=== PATIENT | female | born 1955 | race Two or more races ===

== ENCOUNTER 2017-03-03 09:56 | Day surgery (SDC) | payer OTHER ==
[~2017-03-03] VITALS: Ht 165.1 cm; Wt 93.5 kg
[2017-03-03 10:05] VITALS: Ht 165.1 cm; Wt 93.5 kg
[2017-03-03] MEDS ORDERED: VITAMINS PO (10:15)
[2017-03-03 10:21] VITALS: BP 139/81; PULSE 50; RESP 24
[2017-03-03] MEDS ORDERED: PROPOFOL 40 ML ONE (10:31)
[2017-03-03] MEDS ORDERED: LIDOCAINE 2% (SDV) 5 ML INJ ONE (10:31)
--- NOTE | 2017-03-03 11:43 | OPPN ---
Date/Time of Note Date/Time of Note DATE: 03/03/17 TIME: 11:40 Proc Note GI Procedure date: Mar 03, 2017 Pre-procedure Diagnosis Patient presenting with a history of stool positive for occult blood Post-procedure Diagnosis Mildly diffuse gastritis Operation Performed Esophagogastroduodenoscopy Surgeon: INGRID CLARK MD Anesthesiologist: YUMIKO DIETRICH MD Estimated blood loss: none Specimens Biopsy was done from the stomach to rule out H. pylori infection from the antrum lesser curvature in the fundus Grafts/Implants None Tubes/Drains None Complications: None Procedure Description Procedure esophagogastroduodenoscopy preop diagnosis patient presenting with history of occult GI bleeding to rule out peptic ulcer disease gastritis After informed written consent is obtained patient was asked to lay in the left lateral side intravenous anesthesia was given by anesthesia was Dr. Dietrich When the patient becomes somnolent Olympus video upper endoscope was introduced into the oropharynx and into the esophagus Anterior esophagus appeared normal with no mucosal abnormality Scope of the stent was advanced into the stomach stomach showed evidence of diffuse mild gastritis Biopsy was done from the lesser curvature antrum and the fundus to rule out H. pylori infection Duodenum appeared normal At this time scope was withdrawn and the procedure was terminated plan recommend wait for the pathology report INGRID CLARK MD Mar 03, 2017 11:43
--- NOTE | 2017-03-03 11:46 | OPPN ---
Date/Time of Note Date/Time of Note DATE: 03/03/17 TIME: 11:43 Proc Note GI Procedure date: Mar 03, 2017 Pre-procedure Diagnosis Patient presenting with a history of occult GI bleeding rule out colorectal neoplasm Post-procedure Diagnosis Colonoscopy showed evidence of a 2 polyps one at 10 cm another one at 30 cm from the anus Operation Performed Colonoscopy Surgeon: INGRID CLARK MD Anesthesiologist: YUMIKO DIETRICH MD Estimated blood loss: none Specimens Biopsy was done from the polyp at 10 cm and also polyp at 30 cm from the anus Grafts/Implants None Tubes/Drains After informed written consent is obtained patient was ostial in the left lateral side intravenous anesthesia was given by anesthesiology Dr. Dietrich and the patient with [employer] Video Colonoscope Was Introduced into the Rectum Scope Was Advanced All the Way to the Cecum There Is a Polyp Measuring about 5- 6 Mm Noted at 10 Cm from the Anus There Is a Sessile Polyp Biopsy Was Done Polypectomy Could Not Be Performed at 30 Cm from the Anus There Is Evidence of Another Polyp Measuring about 8 Mm Noted Polypectomy Was Performed but the Specimen Was Lost in the Stool. Scope with This and Was Advanced All the Way to the Cecum Rest of the Colon Appeared Normal Redundancy of the Colon Was Noted Endoscopically Stent Was Withdrawn No Additional Abnormalities Detected and the Procedure Was Terminated Plan Recommend Patient with the Pathology Report and If Necessary Repeat Colonoscopy Complications: None INGRID CLARK MD Mar 03, 2017 11:46
[2017-03-03 12:20] VITALS: BP 145/78; PULSE 46; RESP 16
== END 2017-03-03 15:01 | disposition home or self-care (01) ==
LOC: GIL 09:56
PROVIDERS: ATTEND Internal Medicine Gastroenterology
DX: K92.1 Melena (principal); K63.5 Polyp of colon; K29.60 Other gastritis without bleeding
CPT/HCPCS: 43239; 45380; 88305; 88312; Z7610

== ENCOUNTER 2017-05-26 10:42 | Day surgery (SDC) | payer OTHER ==
[~2017-05-26] VITALS: Ht 160 cm; Wt 92.4 kg
[~2017-05-26 10:42] MED LIST: VITAMINS PO
[2017-05-26 11:40] VITALS: Ht 160 cm; Wt 92.4 kg
[2017-05-26] MEDS ORDERED: FIBER (11:45)
--- NOTE | 2017-05-26 12:42 | OPPN ---
Date/Time of Note Date/Time of Note DATE: 05/26/17 TIME: 12:40 Proc Note GI Procedure Date 05/26/17 Indication: screening/surveillance Pre-procedure Diagnosis rectal polyp with high gr dysplasia Post-procedure Diagnosis rectal polyp at 10 cm bx done and tattooing done Procedure Performed: Colonoscopy Surgeon see signature line Crossing Watchman none Anesthesia Type: moderate sedation Tourniquet Time none EBL none Transfusion required none Biopsy 1: rectal polyp at 10 cm mfrom anus Grafts/Implants none Tubes/Drains none Complication(s) none Procedure Description mod sedation sessile polyp 1cm noted at 10 cm from anus bx done tattooing done INGRID CLARK MD May 26, 2017 12:42
--- NOTE | 2017-05-26 12:42 | OPPN ---
Date/Time of Note Date/Time of Note DATE: 05/26/17 TIME: 12:40 Proc Note GI Procedure Date 05/26/17 Indication: screening/surveillance Pre-procedure Diagnosis rectal polyp with high gr dysplasia Post-procedure Diagnosis rectal polyp at 10 cm bx done and tattooing done Procedure Performed: Colonoscopy Surgeon see signature line Production Shift Supervisor none Anesthesia Type: moderate sedation Tourniquet Time none EBL none Transfusion required none Biopsy 1: rectal polyp at 10 cm mfrom anus Grafts/Implants none Tubes/Drains none Complication(s) none Procedure Description mod sedation sessile polyp 1cm noted at 10 cm from anus bx done tattooing done INGRID CLARK MD May 26, 2017 12:42
[2017-05-26] MEDS ORDERED: MIDAZOLAM 1 MG/ML 2 ML INJ ONE ×3 (12:59)
[2017-05-26] MEDS ORDERED: FENTAnyl 50 MCG/ML VIAL ONE (12:59)
[2017-05-26 13:33] VITALS: BP 123/74; PULSE 53; RESP 20
[2017-05-26 13:34] VITALS: BP 102/57; RESP 14
--- NOTE | 2017-05-28 03:17 | GILP ---
DATE OF PROCEDURE: PROCEDURE: Colonoscopy. 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 At this time, procedure is performed to see if the tumor is still present, or if it is all gone. POSTOPERATIVE DIAGNOSIS: One cm polyp, which is a wide based and sessile polyp noted at 10 cm from the anus. Multiple biopsies were done and tattooing was performed. DESCRIPTION OF PROCEDURE: After the informed written consent was obtained, the patient was asked to lie on the left lateral side. Five mg Versed and 100 mcg of fentanyl was given as intravenous anes thesia. When the patient became somnolent, Olympus video colonoscope was introduced into the rectum and the scope was advanced all the way to the cecum. At 10 cm from the anus, there was evidence of a polyp, which is 1 cm in diameter with a wide base. Multiple pieces were done and polyp was removed. [place] richie, still there were remnants of the base of the polyp noted. After the biopsies were done, tattoo ing was performed by using the SPOT. Scope, at this time, was advanced all the way to the cecum. T he entire rest of the colon appeared normal. No additional polyps or any other abnormality detected . Scope was withdrawn. On the way out, no additional abnormalities detected and the procedure was terminated. PLAN: Wait for the pathology report. Dictated By: INGRID MORALES/VIPUL Conf#: [id number] DID#: [id number]
== END 2017-05-26 21:06 | disposition home or self-care (01) ==
LOC: GIL 10:42
PROVIDERS: ATTEND Internal Medicine Gastroenterology
DX: C18.9 Malignant neoplasm of colon, unspecified (principal)
CPT/HCPCS: 45380; 45381; 88305; J2250; J3010; Z7610